=== PATIENT | female | born 1945 | race Caucasian/White ===

== ENCOUNTER 2020-01-21 17:50 | Outpatient (REF) | payer MEDICARE, SELFPAY | END 2020-01-21 17:51 | disposition home or self-care (01) | LOC: HO.LNP 17:50 | PROVIDERS: Visit Provider Hospitalist | DX: Z20.828 Contact with and (suspected) exposure to other viral communicable diseases (principal) | CPT/HCPCS: 87635 ==

== ENCOUNTER 2020-06-18 10:23 | Outpatient (REF) | payer MEDICARE, SELFPAY | END 2020-06-18 10:24 | disposition home or self-care (01) | LOC: HO.LAB 10:23 | PROVIDERS: Visit Provider Internal Medicine | DX: Z20.822 Contact with and (suspected) exposure to COVID-19 (principal) | CPT/HCPCS: 36415; C9803; U0003; U0005 ==